=== PATIENT | female | born 1985 | race Two or more races ===

== ENCOUNTER 2020-11-19 00:42 | Observation (INO) | payer BC, OTHER ==
[2020-11-19] MEDS ORDERED: PREN-96 OR (01:03)
[2020-11-19] MEDS ORDERED: CALC-386 OR (01:21)
[2020-11-19] MEDS ORDERED: ASPI1TAB20 PO (01:21)
[2020-11-19] MEDS ORDERED: SPECCAP4 OR (01:22)
== END 2020-11-19 01:38 | disposition home or self-care (01) ==
LOC: LDRP 00:42
PROVIDERS: ADMIT Obstetrics & Gynecology; ATTEND Obstetrics & Gynecology
DX: O62.9 Abnormality of forces of labor, unspecified (principal); Z3A.21 21 weeks gestation of pregnancy
CPT/HCPCS: 59025; 81002; 94760; G0378; G0379